=== PATIENT | male | born 1970 | race Caucasian/White ===

== ENCOUNTER → 2016-12-21 21:52 | Emergency (ER) | payer OTHER ==
[~2016-12-21 21:52] MED LIST: Ketorolac INJ* 30 MG/ML 1 ML VIAL IV PUSH ONE; Ketorolac INJ* 60 MG/2 ML VIAL IM ONE; oxyCODONE/Acetamin 5/325 MG* TAB PO ONE
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
[2016-12-21 23:43] VITALS: BP 142/87
--- NOTE | 2016-12-22 07:40 | RAD ---
INDICATION: Right clavicular injury COMPARISON: None TECHNIQUE: AP views were obtained. FINDINGS: There is an oblique, mid shaft] fracture. There is no significant displacement or angular deformity. The AC joint is intact. No additional findings IMPRESSION: RIGHT CLAVICULAR FRACTURE
--- NOTE | 2016-12-22 07:40 | RAD ---
HISTORY: Right shoulder pain, trauma COMPARISONS: None VIEWS: 3, Frontal internal rotation, external rotation, and outlet views of the right shoulder FINDINGS: BONE DENSITY: Normal. BONES: There is a comminuted fracture of the distal (lateral) third of the right clavicle without significant displacement or angulation JOINTS: There is no arthropathy. ALIGNMENT: There is no dislocation. SOFT TISSUES: Unremarkable. OTHER FINDINGS: None. IMPRESSION: COMMINUTED FRACTURE OF THE RIGHT CLAVICLE
--- NOTE | 2016-12-22 07:41 | RAD ---
INDICATION: Right wrist pain and injury COMPARISON: None TECHNIQUE: AP, lateral, and oblique views were obtained. FINDINGS: The bony structures, joint spaces, and soft tissues are normal for age. IMPRESSION: NO ACUTE FRACTURE. IF THERE IS PERSISTENT CONCERN, SUGGEST FOLLOW-UP IN 7-10 DAYS
--- NOTE | 2016-12-22 07:42 | RAD ---
HISTORY: Right hand pain, trauma COMPARISONS: None VIEWS: 4, Frontal, lateral, and oblique views of the right hand FINDINGS: BONE DENSITY: Normal. BONES: There is no displaced fracture. JOINTS: There is no arthropathy. ALIGNMENT: There is no dislocation. SOFT TISSUES: Unremarkable. OTHER FINDINGS: None. IMPRESSION: NO ACUTE OSSEOUS INJURY. IF SYMPTOMS PERSIST, RECOMMEND REPEAT IMAGING.
== END | disposition home or self-care (01) ==
LOC: ED 21:52
DX: S42.001A Fracture of unspecified part of right clavicle, initial encounter for closed fracture (principal); M79.641 Pain in right hand; V29.9XXA Motorcycle rider (driver) (passenger) injured in unspecified traffic accident, initial encounter; Y93.9 Activity, unspecified; Y92.9 Unspecified place or not applicable; Z87.891 Personal history of nicotine dependence
CPT/HCPCS: 96372; 96374; 99283; A9270-GY; J1885